=== PATIENT | male | born 1955 ===

== ENCOUNTER 2017-02-01 07:31 | Inpatient (IN) | payer OTHER ==
[2017-01-20 09:47] VITALS: BMI 29.0
[2017-02-01] MEDS ORDERED: Propofol 10 mg/ml 1,000 MG/100 ML VIAL ONE ×4 (07:46→12:36)
[2017-02-01] MEDS ORDERED: Remifentanil 1 mg/3 ml Vial IV ONE ×3 (07:46→13:05)
[2017-02-01] MEDS ORDERED: ePHEDrine 50 mg/ml Inj ONE (07:49)
[2017-02-01] MEDS ORDERED: Phenylephrine 10 mg/ml Inj ONE (07:49)
[2017-02-01] MEDS ORDERED: Succinylcholine Chloride 20 mg/ml Syr (5 ml) IV ONE (07:49)
[2017-02-01] MEDS ORDERED: Absorbable Gelatin Sponge Size 100 ONE (08:31)
[2017-02-01] MEDS ORDERED: Lidocaine 1% w Epi 1:100,000 Inj ONE (08:31)
[2017-02-01] MEDS ORDERED: Thrombin Topical 5,000 IU Spray Kit ONE (08:32)
[2017-02-01] MEDS ORDERED: Bacitracin 150,000 UNIT in Sodium Chloride 0.9% Irrig 3,000 ML IR SCH (08:39)
[2017-02-01] MEDS ORDERED: Lactated Ringer's 1,000 ML IV ONE ×4 (09:15→13:40)
[2017-02-01] MEDS ORDERED: ceFAZolin IV 2 gm in Dextrose 1 GM/50 ML BAG IVPB ONE (09:27)
[2017-02-01] MEDS ORDERED: Propofol 10 mg/ml Inj (20 ML) ONE (12:34)
[2017-02-01] MEDS ORDERED: Bupivacaine Liposomal Inj 20 ml INJ ONE (13:33)
[2017-02-01] MEDS ORDERED: Bupivacaine HCl 0.5% PF (10 ml) Inj ONE (13:36)
[2017-02-01] MEDS ORDERED: Sodium Chloride 0.9% 20 ML IV ONE (13:44)
[2017-02-01] MEDS ORDERED: Bacitracin Ointment 30 GM TUBE ONE (13:47)
[2017-02-01] MEDS: HYDROmorphone 0.5 mg/0.5 ml ISec IVP PRN ×3 (14:54→16:16)
--- NOTE | 2017-02-01 15:39 | RAD ---
PROCEDURE: Intraoperative fluoroscopy HISTORY: SPINAL STENOSIS COMPARISON: Not available TECHNIQUE: Intraoperative fluoroscopy was provided for posterior lumbar fixation. Total time of fluoroscopy was 44.8 seconds. FINDINGS: Two fluoroscopic spot films are submitted. Films are on file for review. IMPRESSION: Fluoroscopy provided.
[2017-02-01] MEDS: Morphine Monoject Barrel PCA 1mg/ml IV PRN (16:18)
[2017-02-01] MEDS: Potassium Ch 20mEq in D5-1/2NS 1,000 ML IV SCH (18:00)
[2017-02-02] MEDS: Losartan 12.5 MG TAB PO SCH (10:34)
--- NOTE | 2017-02-02 13:43 | CP.PCM.PN ---
Subjective - Date & Time of Evaluation Date of Evaluation: 02/02/17 Time of Evaluation: 13:39 - Subjective Subjective: SPINE - POD #1 Pt sitting up in bed. Complains of surgical site pain, but DEAN OF EDUCATION helping. Thinks his pre-op thigh pain may be a little better. Voiding via sheppard. No flatus yet. VSS. Afebrile. Moving all extremities actively. Neuro grossly intact. Plan: Cont to mobilize as tolerated. May need Rehab post-discharge. Soc service aware. Objective - Vital Signs/Intake and Output Vital Signs (last 24 hours): Temp Pulse Resp BP Pulse Ox 98.4 F 73 20 145/67 95 02/02/17 09:19 02/02/17 09:19 02/02/17 09:19 02/02/17 09:19 02/02/17 09:19 Intake and Output: 02/02/17 02/02/17 06:59 18:59 Output Total 3050 Balance -3050 - Medications Medications: Current Medications Acetaminophen (Tylenol 325mg Tab) 650 mg PO Q6 PRN PRN Reason: Fever >100.4 F Amlodipine Besylate (Norvasc) 10 mg PO DAILY [facility] Last Admin: 02/02/17 09:58 Dose: 10 mg Famotidine (Pepcid) 20 mg PO DAILY [facility] Last Admin: 02/02/17 09:58 Dose: 20 mg Potassium Chloride/Dextrose/Sod Cl (Potassium Chl 20 Meq In D5-1/2ns) 1,000 mls @ 100 mls/hr IV .Q10H [facility] Last Admin: 02/01/17 18:00 Dose: 250 mls Losartan Potassium (Cozaar) 12.5 mg PO DAILY [facility] Last Admin: 02/02/17 10:34 Dose: 12.5 mg Morphine Sulfate/Sodium Chloride (Morphine Wood Fence Installer Monoject Barrel) 0.5 mg IV Q4H PRN; Protocol PRN Reason: Pain, severe (8-10) Last Admin: 02/01/17 16:18 Dose: 0.5 mg Rosuvastatin Calcium (Crestor) 5 mg PO HS [facility]
[2017-02-02] MEDS: Morphine Monoject Barrel PCA 1mg/ml IV PRN (14:36)
[2017-02-02] MEDS: Potassium Ch 20mEq in D5-1/2NS 1,000 ML IV SCH (18:52)
[2017-02-03] MEDS: Morphine Monoject Barrel PCA 1mg/ml IV PRN (05:16)
[2017-02-03] MEDS: Potassium Ch 20mEq in D5-1/2NS 1,000 ML IV SCH ×3 (05:55→19:41)
--- NOTE | 2017-02-03 08:13 | CP.PCM.PN ---
Subjective - Date & Time of Evaluation Date of Evaluation: 02/03/17 Time of Evaluation: 08:12 - Subjective Subjective: pod 2 still has usual post op pain no weakness or dec to pin noted today will change to po pain meds socail work re subacute adv activites Objective - Vital Signs/Intake and Output Vital Signs (last 24 hours): Temp Pulse Resp BP Pulse Ox 99.9 F H 84 20 120/65 97 02/03/17 04:16 02/03/17 04:16 02/03/17 04:16 02/03/17 04:16 02/03/17 04:16 Intake and Output: 02/03/17 02/03/17 06:59 18:59 Intake Total 1400 Output Total 4300 Balance -2900 - Medications Medications: Current Medications Acetaminophen (Tylenol 325mg Tab) 650 mg PO Q6 PRN PRN Reason: Fever >100.4 F Amlodipine Besylate (Norvasc) 10 mg PO DAILY [facility] Last Admin: 02/02/17 09:58 Dose: 10 mg Bacitracin (Bacitracin) 1 ea TOP DAILY [facility] Famotidine (Pepcid) 20 mg PO DAILY [facility] Last Admin: 02/02/17 09:58 Dose: 20 mg Potassium Chloride/Dextrose/Sod Cl (Potassium Chl 20 Meq In D5-1/2ns) 1,000 mls @ 100 mls/hr IV .Q10H [facility] Last Admin: 02/03/17 05:55 Dose: 100 mls/hr Losartan Potassium (Cozaar) 12.5 mg PO DAILY [facility] Last Admin: 02/02/17 10:34 Dose: 12.5 mg Morphine Sulfate/Sodium Chloride (Morphine Polisher Balance Screwhead Monoject Barrel) 0.5 mg IV Q4H PRN; Protocol PRN Reason: Pain, severe (8-10) Last Admin: 02/03/17 05:16 Dose: 0.5 mg Oxycodone HCl (Oxycontin Extended Release Tab) 20 mg PO Q12 [facility] Oxycodone/Acetaminophen (Percocet 5/325 Mg Tab) 1 tab PO Q4H PRN PRN Reason: Pain, Mild (1-3) Stop: 02/06/17 13:54 Rosuvastatin Calcium (Crestor) 5 mg PO HS [facility] Last Admin: 02/02/17 22:59 Dose: 5 mg
[2017-02-03] MEDS ORDERED: Magnesium Hydroxide Susp 30 ml UD PO ONE (09:02)
[2017-02-03] MEDS: oxyCODONE 20 mg ER Tab (oxyCONTIN) PO SCH ×2 (09:29→21:39)
[2017-02-03] MEDS: Bacitracin 500 Units/gm Oint Foilpak UD TOP SCH (09:29)
[2017-02-03] MEDS: Losartan 12.5 MG TAB PO SCH (09:30)
[2017-02-03] MEDS ORDERED: Oxycodone/Acetaminophen 5/325 mg Tab PO PRN (13:53)
[2017-02-04] MEDS: Oxycodone/Acetaminophen 5/325 mg Tab PO PRN ×4 (00:19→23:33)
[2017-02-04] MEDS: Potassium Ch 20mEq in D5-1/2NS 1,000 ML IV SCH ×3 (02:15→13:15)
[2017-02-04] MEDS: oxyCODONE 20 mg ER Tab (oxyCONTIN) PO SCH ×2 (09:02→21:39)
[2017-02-04] MEDS: Bacitracin 500 Units/gm Oint Foilpak UD TOP SCH (09:02)
[2017-02-04] MEDS: Losartan 12.5 MG TAB PO SCH (09:06)
--- NOTE | 2017-02-04 11:51 | CP.PCM.PN ---
Subjective - Date & Time of Evaluation Date of Evaluation: 02/04/17 Time of Evaluation: 11:48 - Subjective Subjective: SPINE - POD #3 Pt resting in bed. Complains of headaches. Had sl fever last night, ok now. Was OOB yest w PT. Waiting for them this morning. VSS. Afebrile (100.9 overnight). Moves all extremitiesa. Neuro ok. Incision clean and dry. Plan: Cont w therapy. Will d/c to home today if cleared by PT. Otherwise cont hospitalization as insurance reportedly denied rehab placement. Objective - Vital Signs/Intake and Output Vital Signs (last 24 hours): Temp Pulse Resp BP Pulse Ox 98.3 F 86 20 142/64 94 L 02/04/17 07:00 02/04/17 07:00 02/04/17 07:00 02/04/17 07:00 02/04/17 07:00 Intake and Output: 02/04/17 02/04/17 06:59 18:59 Intake Total 1800 Output Total 3650 Balance -1850 - Medications Medications: Current Medications Acetaminophen (Tylenol 325mg Tab) 650 mg PO Q6 PRN PRN Reason: Fever >100.4 F Last Admin: 02/03/17 16:23 Dose: 650 mg Amlodipine Besylate (Norvasc) 10 mg PO DAILY [facility] [place] Last Admin: 02/04/17 09:02 Dose: 10 mg Bacitracin (Bacitracin) 1 ea TOP DAILY [facility] Last Admin: 02/04/17 09:02 Dose: 1 ea Famotidine (Pepcid) 20 mg PO DAILY [facility] Last Admin: 02/04/17 09:02 Dose: 20 mg Potassium Chloride/Dextrose/Sod Cl (Potassium Chl 20 Meq In D5-1/2ns) 1,000 mls @ 100 mls/hr IV .Q10H [facility] Last Admin: 02/04/17 06:48 Dose: 100 mls/hr Losartan Potassium (Cozaar) 12.5 mg PO DAILY [facility] Last Admin: 02/04/17 09:06 Dose: 12.5 mg Oxycodone HCl (Oxycontin Extended Release Tab) 20 mg PO Q12 [facility] Last Admin: 02/04/17 09:02 Dose: 20 mg Oxycodone/Acetaminophen (Percocet 5/325 Mg Tab) 1 tab PO Q4H PRN PRN Reason: Pain, Mild (1-3) Stop: 02/06/17 08:17 Last Admin: 02/04/17 04:45 Dose: 1 tab Rosuvastatin Calcium (Crestor) 5 mg PO HS [facility] Last Admin: 02/03/17 21:38 Dose: 5 mg
[2017-02-05] MEDS: oxyCODONE 20 mg ER Tab (oxyCONTIN) PO SCH ×2 (10:01→21:38)
[2017-02-05] MEDS: Losartan 12.5 MG TAB PO SCH (10:02)
[2017-02-05] MEDS: Bacitracin 500 Units/gm Oint Foilpak UD TOP SCH (10:02)
[2017-02-05] MEDS: Oxycodone/Acetaminophen 5/325 mg Tab PO PRN ×2 (12:40→19:52)
[2017-02-06] MEDS: Oxycodone/Acetaminophen 5/325 mg Tab PO PRN (06:36)
[2017-02-06] MEDS: oxyCODONE 20 mg ER Tab (oxyCONTIN) PO SCH (10:43)
[2017-02-06] MEDS: Losartan 12.5 MG TAB PO SCH (10:43)
[2017-02-06] MEDS: Bacitracin 500 Units/gm Oint Foilpak UD TOP SCH (10:45)
--- NOTE | 2017-02-06 15:02 | CP.PCM.PN ---
Subjective - Date & Time of Evaluation Date of Evaluation: 02/06/17 Time of Evaluation: 14:59 - Subjective Subjective: SPINE - POD #5 Pt dressed, sitting on side of bed. Ready to go home. Complains of some soreness lateral L calf, as well as pain w straining for BM/ VSS. Afebrile now. Neuro intact. Plan: d/c to home. Colace. Call for f/u appt. Objective - Vital Signs/Intake and Output Vital Signs (last 24 hours): Temp Pulse Resp BP Pulse Ox 98.9 F 82 18 143/76 95 02/06/17 10:03 02/06/17 08:59 02/06/17 10:03 02/06/17 10:03 02/06/17 10:03 Intake and Output: 02/06/17 02/06/17 06:59 18:59 Intake Total 550 Balance 550 - Medications Medications: Current Medications Acetaminophen (Tylenol 325mg Tab) 650 mg PO Q6 PRN PRN Reason: Fever >100.4 F Last Admin: 02/05/17 21:37 Dose: 650 mg Amlodipine Besylate (Norvasc) 10 mg PO DAILY [facility] Last Admin: 02/06/17 10:43 Dose: 10 mg Bacitracin (Bacitracin) 1 ea TOP DAILY [facility] Last Admin: 02/06/17 10:45 Dose: 1 ea Famotidine (Pepcid) 20 mg PO DAILY [facility] Last Admin: 02/06/17 10:43 Dose: 20 mg Losartan Potassium (Cozaar) 12.5 mg PO DAILY [facility] Last Admin: 02/06/17 10:43 Dose: 12.5 mg Oxycodone HCl (Oxycontin Extended Release Tab) 20 mg PO Q12 [facility] Last Admin: 02/06/17 10:43 Dose: 20 mg Rosuvastatin Calcium (Crestor) 5 mg PO HS [facility] Last Admin: 02/05/17 21:38 Dose: 5 mg
[2017-02-06 16:01] VITALS: BP 169/70; PULSE 87; RESP 20; TEMP 98.4; O2SAT 96
== END 2017-02-06 16:15 | disposition home or self-care (01) | DRG 460 ==
LOC: C.9S 07:31 → C.6T 20:59
PROVIDERS: ADMIT Neurological Surgery; ATTEND Neurological Surgery
PROC: 01NB0ZZ Release Lumbar Nerve, Open Approach (ICD-10-PCS; 2017-02-01)
PROC: 0SG00A0 Fusion of Lumbar Vertebral Joint with Interbody Fusion Device, Anterior Approach, Anterior Column, Open Approach (ICD-10-PCS; principal; 2017-02-01 09:00)
DX: M51.06 Intervertebral disc disorders with myelopathy, lumbar region (principal); G89.18 Other acute postprocedural pain